=== PATIENT | male | born 1975 | race Caucasian/White ===

== ENCOUNTER → 2020-10-17 | Outpatient (CLI) | payer OTHER ==
--- NOTE | 2020-10-17 12:12 | RAD ---
EXAM: Abdomen sonogram. HISTORY: Palpable lump. TECHNIQUE: Sonographic imaging of the abdominal wall at the site of palpable concern was performed. COMPARISON: None. FINDINGS: There is a circumscribed nonvascular nodule isoechoic to fat at the site of palpable concer n within the subcutaneous tissues of the left ventral abdominal wall. This measures 2.6 x 1.6 x 1.0 c m. No additional lesion is seen.. IMPRESSION: 2.6 cm nodule within the subcutaneous soft tissues of the left ventral abdominal wall at the site of palpable concern, the appearance of which favors a benign lipoma. Continued clinical foll ow-up of palpable abnormalities is recommended. Repeat imaging can be performed if there is continuin g concern. Electronically signed by: Syeda Santos MD (10/17/2020 12:10 PM) [id number]
== END ==
LOC: US 10:40
PROVIDERS: ATTEND Family Medicine
DX: D17.1 Benign lipomatous neoplasm of skin and subcutaneous tissue of trunk (principal)
CPT/HCPCS: 76705

== ENCOUNTER → 2021-10-13 | Outpatient (CLI) | payer OTHER ==
--- NOTE | 2021-10-13 15:24 | RAD ---
EXAM: XR SHOULDER_RIGHT 2+ VIEWS 10/13/2021 9:35 AM CLINICAL INDICATION: Right shoulder pain COMPARISON: MRI right shoulder 09/22/2021 TECHNIQUE: 4 views of the right shoulder FINDINGS: No acute fracture. Alignment is normal. The acromioclavicular and glenohumeral joints are normal. No soft tissue abnormality. IMPRESSION: No acute osseous abnormality. Electronically signed by: Debra Gamboa MD (10/13/2021 3:21 PM) [id number]
== END ==
LOC: RAD 09:14
PROVIDERS: ATTEND Physician Assistant
DX: M25.511 Pain in right shoulder (principal)
CPT/HCPCS: 73030